=== PATIENT | female | born 1995 | race Caucasian/White ===

== ENCOUNTER 2020-12-30 04:36 | Inpatient (IN) | payer BC ==
[2020-12-26 16:09] VITALS: BMI 25.4
[2020-12-30] MEDS ORDERED: fentaNYL CITRATE 250 MCG/5 ML VIAL ONE (07:47)
[2020-12-30] MEDS ORDERED: LIDOCAINE HCL/PF 2% SDV 5ML VIAL ONE (07:47)
[2020-12-30] MEDS ORDERED: DEXAMETHASONE SOD PHOSPHATE 4 MG/1 ML VIAL ONE (07:47)
[2020-12-30] MEDS ORDERED: PROPOFOL 20 ML ONE (07:47)
[2020-12-30] MEDS ORDERED: MIDAZOLAM HCL 2 MG/2 ML SINGLE DOSE VIAL ONE ×2 (07:48→08:56)
[2020-12-30] MEDS ORDERED: BUPIVACAINE LIPOSOME/PF (EXPAREL) 266 MG/20 ML VIAL ONE (08:04)
[2020-12-30] MEDS ORDERED: BUPIVACAINE HCL/PF 0.5% (5MG/ML) 10 ML VIAL ONE (08:05)
[2020-12-30] MEDS ORDERED: IBUPROFEN 600 MG TABLET (FP) PO PRN (10:18)
[2020-12-30] MEDS ORDERED: IBUPROFEN 800 MG/8 ML IJ IVPB PRN (10:18)
[2020-12-30] MEDS ORDERED: ONDANSETRON 4 MG/2 ML VIAL IVPUSH PRN (10:18)
[2020-12-30] MEDS ORDERED: oxyCODONE HCL 5 MG TABLET PO PRN (10:18)
[2020-12-30] MEDS ORDERED: ceFAZolin SODIUM 1 GM VIAL ONE ×2 (10:26→17:28)
[2020-12-30] MEDS ORDERED: ceFAZolin SODIUM 1 GM VIAL IVPB ONE (10:26)
[2020-12-30] MEDS ORDERED: ELECTROLYTE-148 SOLN 1,000 ML IV SCH (10:30)
[2020-12-30] MEDS ORDERED: ePHEDrine SULFATE 50 MG/1 ML AMPULE ONE (10:52)
[2020-12-30] MEDS ORDERED: KETOROLAC TROMETHAMINE 30 MG/1 ML VIAL ONE (11:16)
[2020-12-30] MEDS ORDERED: NEOSTIGMINE METHYLSULFATE 0.5 MG/ML - 10 ML MDV ONE (11:16)
[2020-12-30] MEDS ORDERED: GLYCOPYRROLATE 0.2 MG/1 ML VIAL ONE (11:16)
[2020-12-30] MEDS ORDERED: DESFLURANE GAS 240 ML BOTTLE IH ONE (11:25)
[2020-12-30] MEDS ORDERED: BENZOIN/ALOE VERA/STORAX/TOLU 58 ML BOTTLE ONE (11:42)
[2020-12-30] MEDS ORDERED: ACETAMINOPHEN 1000 MG/100 ML VIAL IVPB ONE (13:10)
[2020-12-30] MEDS ORDERED: LACTATED RINGERS SOLUTION 1,000 ML IV SCH (13:15)
[2020-12-30] MEDS ORDERED: DEXTROSE 5%-WATER - 50 ML IVPB ONE (17:28)
[2020-12-30] MEDS: CEFAZOLIN 1 GM in DEXTROSE 5%-WATER - 50 ML IVPB SCH (17:39)
[2020-12-30] MEDS: KETOROLAC TROMETHAMINE 30 MG/1 ML VIAL IVPUSH SCH (17:46)
[2020-12-30] MEDS ORDERED: CEFAZOLIN 1 GM PUSH 1 GM/10 ML SYRINGE IVPUSH SCH (18:00)
[2020-12-30] MEDS: ACETAMINOPHEN 1000 MG/100 ML VIAL IVPB SCH (21:22)
[2020-12-31] MEDS ORDERED: DEXTROSE 5%-WATER - 50 ML IVPB ONE ×2 (01:11→09:45)
[2020-12-31] MEDS ORDERED: ceFAZolin SODIUM 1 GM VIAL ONE ×2 (01:11→09:45)
[2020-12-31] MEDS: KETOROLAC TROMETHAMINE 30 MG/1 ML VIAL IVPUSH SCH ×2 (01:16→10:04)
[2020-12-31] MEDS: CEFAZOLIN 1 GM in DEXTROSE 5%-WATER - 50 ML IVPB SCH ×2 (01:16→10:10)
[2020-12-31] MEDS: ACETAMINOPHEN 1000 MG/100 ML VIAL IVPB SCH ×2 (01:24→07:30)
[2020-12-31 07:38] LABS: HEMATOCRIT 35.3 % (32.4-45.2); HEMOGLOBIN 11.9 GM/dL (10.7-15.3); MCH 27.8 pg (25.7-33.7); MCHC 33.6 g/dl (32.0-36.0); MEAN CELL VOLUME 82.7 fl (80-96); MEAN PLT VOLUME 7.7 fl (7.5-11.1); PLATELET COUNT 236 10^3/uL (134-434); RBC 4.27 M/mm3 (3.60-5.2); RDW 12.6 % (11.6-15.6); WHITE BLOOD COUNT 11.3 K/mm3 (4.0-10.0)
[2020-12-31 14:54] VITALS: BP 115/66; PULSE 67; TEMP 98.9
== END 2020-12-31 17:27 | disposition home or self-care (01) | DRG 743 ==
LOC: J2C 04:36 → J3W 13:45
PROVIDERS: ADMIT Obstetrics & Gynecology; ATTEND Obstetrics & Gynecology
PROC: 0UB90ZZ Excision of Uterus, Open Approach (ICD-10-PCS; principal; 2020-12-30 09:30)
DX: D25.2 Subserosal leiomyoma of uterus (principal)
CPT/HCPCS: 36415; 81025; 85027; 88305-TC; 94760; J0131